=== PATIENT | female | born 1950 | race Two or more races ===

== ENCOUNTER → 2024-11-15 | Outpatient (CLI) | payer MEDICARE, MEDICAID, SELFPAY ==
--- NOTE | 2024-11-15 10:38 | XR_ITS ---
Examination: Hand, right 3 views Technique: Hand AP, oblique, lateral 3 views Date and time of exam: November 15, 2024 1103 hours INDICATIONS: Palpable lump on the right fifth digit noticed beginning 5 years ago FINDINGS: 8 mm soft tissue mass at the distal interphalangeal joint left fifth digit Significant osteoarthritis distal interphalangeal joint fifth digit No fracture No opaque foreign body No cortical bone obstruction IMPRESSION: 8 mm soft tissue mass at the distal interphalangeal joint left fifth digit Significant osteoarthritis distal interphalangeal joint fifth digit No opaque foreign body Consider MRI fifth digit without contrast follow-up
== END | disposition home or self-care (01) ==
LOC: CDIM 10:29
PROVIDERS: PCP Physician Assistant; Referring Provider Surgery; Visit Provider Surgery
DX: R22.31 Localized swelling, mass and lump, right upper limb (principal); M19.041 Primary osteoarthritis, right hand
CPT/HCPCS: 73130

== ENCOUNTER → 2025-01-01 | Outpatient (CLI) | payer MEDICARE, MEDICAID, SELFPAY ==
--- NOTE | 2025-01-01 08:30 | XR_ITS ---
Examination: Screening digital mammography, bilateral Computer aided detection 3-D breast Tomosynthesis, bilateral Date and time of exam: January 01, 2025 0811 hours Compared to mammograms dating to May 21, 2018 Indication: Screening Technique: Nonmagnified MLO, CC views of the breasts to been obtained, reconstructed from 3-D Tomosynthesis images. R2 computer aided detection program utilized for evaluation of suspicious masses and/or abnormal calcifications. 3-D Tomosynthesis images obtained. Findings: Scattered areas of fibroglandular density. Numerous benign vascular calcifications. No interval suspicious masses Impression: BI-RADS category II: Benign Findings. Recommend 1 year follow-up mammogram.
== END | disposition home or self-care (01) ==
PROVIDERS: Referring Provider Physician Assistant; Visit Provider Physician Assistant
DX: Z12.31 Encounter for screening mammogram for malignant neoplasm of breast (principal); R92.323 Mammographic fibroglandular density, bilateral breasts; R92.1 Mammographic calcification found on diagnostic imaging of breast
CPT/HCPCS: 77063; 77067

== ENCOUNTER → 2025-05-20 | Outpatient (CLI) | payer MEDICARE, MEDICAID, SELFPAY ==
--- NOTE | 2025-05-20 07:00 | XR_ITS ---
Examination: MRI right humerus, without contrast Date and time of exam: May 20, 2025 0823 hours INDICATIONS: Injury to the arm, clinical diagnosis brain right biceps, pain radiating from the shoulder to the elbow with palpable lump anterior to the humerus Technique: Multiple axial sagittal and coronal images of the right humerus have been obtained with the Siemens high-resolution 1.5 Hil[employer] MRI scanner. Images obtained include T2-weighted fat-suppressed sagittal sections, TR 3500, TE 46, T2 weighted coronal fat suppressed images, TR 3050, TE 84, T2-weighted transverse fat suppressed images, TR 3260, TE 63, proton density transverse images, TR 4720 TE 46, and T1 weighted coronal images, TR 560, TE 13. Findings: Long head of the biceps is not visualized in the bicipital groove although the shoulder is incompletely visualized on this study The images of the elbow are degraded Findings are suspicious for tear of the long head of the biceps insertion into the radial tuberosity The humerus itself is intact IMPRESSION: Recommend MRI shoulder without contrast follow-up to exclude tear of the biceps labral complex Recommend MRI elbow without contrast follow-up to exclude tear of the long head of the biceps into the radial tuberosity
== END | disposition home or self-care (01) ==
LOC: SMRI 06:40
PROVIDERS: PCP Physician Assistant; Referring Provider Physician Assistant; Visit Provider Physician Assistant
DX: S46.211A Strain of muscle, fascia and tendon of other parts of biceps, right arm, initial encounter (principal); X58.XXXA Exposure to other specified factors, initial encounter
CPT/HCPCS: 73218

== ENCOUNTER → 2025-06-27 | Outpatient (CLI) | payer MEDICARE, MEDICAID, SELFPAY ==
--- NOTE | 2025-06-27 09:02 | XR_ITS ---
Examination: Bilateral AP knees standing single view Standing right lateral knee left lateral knee 2 views TECHNIQUE: Bilateral AP knees standing single view Standing right lateral knee left lateral knee 2 views total 3 views Date and time: June 27, 2025 0944 hours, comparison July 12, 2022 INDICATIONS: Bilateral knee pain beginning one year ago. FINDINGS: Moderate narrowing medial lateral joint spaces as well as patellofemoral joints No fractures No dislocations IMPRESSION: Bilateral moderate tricompartment osteoarthritis
== END | disposition home or self-care (01) ==
PROVIDERS: PCP Physician Assistant; Referring Provider Physician Assistant; Visit Provider Physician Assistant
DX: M17.0 Bilateral primary osteoarthritis of knee (principal)
CPT/HCPCS: 73560

== ENCOUNTER → 2025-07-04 | Outpatient (CLI) | payer MEDICARE, MEDICAID, SELFPAY ==
--- NOTE | 2025-07-04 12:03 | XR_ITS ---
Examination: Ultrasound soft tissue extremity right groin TECHNIQUE: Grayscale sonographic images soft tissue right groin Date and time: July 04, 2025, 1331 hours INDICATIONS: Right groin pain 2 weeks post heart catheterization FINDINGS: No hematoma or pseudoaneurysm IMPRESSION: No hematoma or pseudoaneurysm
== END | disposition home or self-care (01) ==
PROVIDERS: PCP Physician Assistant; Referring Provider Internal Medicine; Visit Provider Internal Medicine
DX: R10.31 Right lower quadrant pain (principal)
CPT/HCPCS: 76882

== ENCOUNTER → 2025-07-24 | Outpatient (CLI) | payer MEDICARE, MEDICAID, SELFPAY ==
--- NOTE | 2025-07-24 09:13 | XR_ITS ---
Examination: Lumbar spine, 5 views Technique: Lumbar spine AP, lateral, coned lateral lower lumbar spine, bilateral obliques 5 views Exam date and time: July 24, 2025, 0918 hours, comparison 06/26/2018 INDICATIONS: Low back pain beginning 2 months ago radiating down the legs FINDINGS: Severe osteopenia Lumbar dextroscoliosis 18 degrees Advanced diffuse facet arthropathy Chronic osteoporotic compressions L2, L1, T12, T11, T10 Diffuse advanced lumbar degenerative disc disease No lumbar acute fracture IMPRESSION: Advanced diffuse lumbar degenerative disc disease with significant spinal stenosis
== END | disposition home or self-care (01) ==
PROVIDERS: PCP Physician Assistant; Referring Provider Physician Assistant; Visit Provider Physician Assistant
DX: M51.360 Other intervertebral disc degeneration, lumbar region with discogenic back pain only (principal); M48.061 Spinal stenosis, lumbar region without neurogenic claudication
CPT/HCPCS: 72110